=== PATIENT | female | born 2000 | race Caucasian/White ===

== ENCOUNTER 2019-10-08 12:24 | Outpatient (REF) | payer OTHER, SELFPAY ==
--- NOTE | 2019-10-08 10:30 | PAPFT_PTH ---
PATIENT: Snow Root LOC: [facility] U#:[id number] AGE/SX: 19/F ROOM: RE10/08/[address]: Marci Reinoso NP : 2000 BED: DIS: 10/08/2019 SPEC #: [id number] RECD: 10/08/19 12:40 STATUS: GOOD TOMPKINS #: [id number] KRISHNA: 10/08/19 10:[address]: Marci Reinoso NP DEPT: [facility] Cytology RECD BY: Lissa Akins ENTERED: 10/08/19 12:40 SP TYPE: PAPFT JAMSHID DR: Angela Local Tissues: 1 - CX/ENDOCX FOR PAP SMEARS Procedures: PAP THIN PREP/[facility] Screening Comments: [id number]
== END 2019-10-08 12:44 ==
LOC: LBN 12:24
PROVIDERS: Visit Provider Nurse Practitioner Women's Health
DX: Z12.4 Encounter for screening for malignant neoplasm of cervix (principal)
CPT/HCPCS: 88142

== ENCOUNTER 2020-10-10 14:53 | Outpatient (REF) | payer OTHER, SELFPAY ==
--- NOTE | 2020-10-10 08:45 | PAPFT_PTH ---
PATIENT: Snow Root LOC: [facility] U#:[id number] AGE/SX: 20/F ROOM: RE10/10/[address]: YEHUDA Bunch : 2000 BED: DIS: 10/10/2020 SPEC #: [id number] RECD: 10/10/20 17:07 STATUS: GOOD RELou #: [id number] KRISHNA: 10/10/20 08:[address]: Kasey Stone DEPT: [facility] Cytology RECD BY: Lissa Akins ENTERED: 10/10/20 17:07 SP TYPE: PAPFT JAMSHID DR: Angela Lamas Tissues: 1 - CX/ENDOCX FOR PAP SMEARS Procedures: PAP THIN PREP/[facility] Screening Comments: [id number]
[2020-10-13 14:26] LABS: Chlamydia Result Negative (Negative); GC Result Negative (Negative)
== END 2020-10-10 15:13 ==
LOC: LBN 14:53
PROVIDERS: Visit Provider Nurse Practitioner Family
DX: Z11.3 Encounter for screening for infections with a predominantly sexual mode of transmission (principal); Z12.4 Encounter for screening for malignant neoplasm of cervix
CPT/HCPCS: 87491; 87591; 88142

== ENCOUNTER 2022-04-01 17:54 | Outpatient (CLI) | payer SELFPAY ==
--- NOTE | 2022-04-01 18:37 | DI.RAD_ITS ---
Exam(s) XR ANKLE RT COMPLETE EXAM: XR ANKLE RT COMPLETE CLINICAL HISTORY: Right ankle pain, right foot pain. TECHNIQUE: 2D digital imaging was performed of the right ankle. Three images were obtained. AP, la teral and oblique views were obtained. COMPARISON: No exams were available for comparison FINDINGS: BONES: No acute fracture is present. No bony destructive lesion is seen. JOINTS: The ankle mortise is normally aligned. SOFT TISSUE: Normal. IMPRESSION: Unremarkable radiographs of the right ankle. DATA REPOSITORY: RADIATION DOSE DELIVERED:
--- NOTE | 2022-04-01 18:38 | DI.RAD_ITS ---
Exam(s) XR FOOT RT COMPLETE EXAM: XR FOOT RT COMPLETE CLINICAL HISTORY: Right ankle pain, Right foot pain. TECHNIQUE: 2D digital imaging was performed of the right foot. Three images were obtained. AP, obl ique and lateral views were obtained. COMPARISON: No exams were available for comparison FINDINGS: BONES: No acute fracture is present. No bony destructive lesion is seen. JOINTS: No dislocation present. SOFT TISSUE: Normal. IMPRESSION: Unremarkable radiographs of the right foot. DATA REPOSITORY: RADIATION DOSE DELIVERED:
--- NOTE | 2022-04-01 18:55 | DI.VRAD_ITS ---
PROCEDURE INFORMATION: Exam: XR Right Foot Exam date and time: 04/01/2022 18:30 Age: 22 years old Clinical indication: Injury or trauma; Other: Twisting injury; Blunt trauma; Foot; Right TECHNIQUE: Imaging protocol: Radiologic exam of the Right foot. Views: 3 or more views. COMPARISON: No relevant prior studies available. FINDINGS: Bones/joints: No acute fracture or subluxation. Soft tissues: Normal. IMPRESSION: No acute bony pathology. Dictated and Authenticated by: Jemima Downs MD. Ordering:JOEY Johns MD
--- NOTE | 2022-04-01 18:55 | DI.VRAD_ITS ---
PROCEDURE INFORMATION: Exam: XR Right Ankle Exam date and time: 04/01/2022 18:31 Age: 22 years old Clinical indication: Injury or trauma; Other: Twisting injury; Blunt trauma; Ankle; Right TECHNIQUE: Imaging protocol: Radiologic exam of the Right ankle. Views: 3 or more views. COMPARISON: CR XR FOOT RT COMPLETE 04/01/2022 18:30 FINDINGS: Bones/joints: No acute fracture or subluxation. Soft tissues: Unremarkable. IMPRESSION: No acute bony pathology. Dictated and Authenticated by: Jemima Downs MD. Ordering:JOEY Johns MD
== END 2022-04-01 18:14 ==
PROVIDERS: Visit Provider Physician Assistant Medical
DX: S93.401A Sprain of unspecified ligament of right ankle, initial encounter (principal); X50.1XXA Overexertion from prolonged static or awkward postures, initial encounter; Y99.8 Other external cause status; S93.601A Unspecified sprain of right foot, initial encounter
CPT/HCPCS: 73610; 73630

== ENCOUNTER → 2023-11-21 02:24 | Outpatient (CLI) | payer MEDICAID, SELFPAY ==
--- NOTE | 2023-11-21 | DI.US_ITS ---
Exam(s) US PELVIS TRANSVAGINAL EXAM: US PELVIS TRANSVAGINAL CLINICAL HISTORY: ABNL MENSTRUATION, N92.6, SUSPECT PCOS DISEASE TECHNIQUE: Transabdominal and transvaginal imaging was performed using standard protocol. COMPARISON: No exams were available for comparison FINDINGS: UTERUS: Anteverted. 8.0 x 3.2 x 4.4 cm Endometrium: 8 mm Myometrium: Unremarkable. Cervix: Unremarkable. OVARIES: Right: Cyst or mass: None. Left: Cyst or mass: None. DOPPLER: Color: Symmetric and uniform flow to both ovaries. No hyperemia. Dilated veins left side of the pelv is could indicate pelvic congestion syndrome. CUL-DE-SAC: Free fluid: None. IMPRESSION: 1. Normal-appearing uterus with endometrial stripe within normal limits. 2. Unremarkable bilateral ovaries. 3. Dilated left-sided pelvic veins could indicate pelvic congestion syndrome. DATA REPOSITORY:
== END ==
PROVIDERS: Visit Provider Advanced Practice Midwife
DX: N92.5 Other specified irregular menstruation (principal)
CPT/HCPCS: 76830; 76856